=== PATIENT | male | born 1950 | race Caucasian/White ===

== ENCOUNTER 2019-06-29 03:50 | Emergency (ER) | payer OTHER ==
[2019-06-29] MEDS ORDERED: MORPHINE 4 MG/ML SYR ONE (04:26)
[2019-06-29] MEDS ORDERED: ONDANSETRON 4 MG/2 ML VIAL ONE (04:26)
[2019-06-29 04:52] LABS: Absolute Lymphocytes (CBC) 0.7 K/uL (0.7-4.9); Basophils % 0.3 % (0-1.3); Hematocrit 44.3 % (39.6-49.0); Lymphocytes % 8.3 % (15.3-44.8); MPV 9.4 fL (7.6-11.3); RBC Red Blood Cell Count 5.01 M/uL (4.33-5.43)
[2019-06-29 05:05] LABS: Albumin 3.7 g/dL (3.4-5.0); Bilirubin Direct 0.1 mg/dL (0-0.2); Bilirubin Total 0.6 mg/dL (0.2-1.0); Potassium 3.9 mmol/L (3.5-5.1); Protein, Total 6.7 g/dL (6.4-8.2)
[2019-06-29] MEDS ORDERED: HYDROCODONE/APAP 10/325 TAB ONE (05:54)
--- NOTE | 2019-06-29 07:15 | EDPHYS ---
Physician Documentation [facility] Name: Clarence Flores Age: 69 yrs Sex: Male : 1950 Arrival Date: 06/29/2019 Time: 03:53 Bed 4 Private MD: ED Physician Kenn Encarnacion HPI: 06/29 04:24 This 69 yrs old Male presents to ER via Unassigned with complaints of rn Abdominal pain. 04:24 The patient presents with abdominal pain in the left lower quadrant. Onset: The rn symptoms/episode began/occurred today. The symptoms do not radiate. Associated signs and symptoms: Pertinent positives: blood in stools, nausea, Pertinent negatives: anorexia, constipation, diarrhea, dysuria, fever. Modifying factors: The symptoms are alleviated by nothing, the symptoms are aggravated by pressure. Severity of pain: At its worst the pain was moderate in the emergency department the pain is unchanged. The patient has experienced similar episodes in the past. Reports has had about 6 episodes of diverticulitis, feels similar again, began today, no fever, no trauma, has had chronic blood in stools. No hematemesis. . Historical: - Allergies: 05:00 No Known Allergies; vc - Home Meds: 05:00 levothyroxine 125 mcg tab 1 tab once daily [Active]; lisinopril 2.5 mg Oral tab 1 tab vc once daily [Active]; Plavix 75 mg Oral tab 1 tab once daily [Active]; aspirin 325 mg oral tab [Active]; rosuvastatin 20mg Oral once daily [Active]; Fish Oil 1,000 mg oral cap [Active]; sotalol 160 mg Oral tab 1 tab 2 times per day [Active]; calmag zinc [Active]; - PMHx: 05:00 High Cholesterol; Hypertension; Hypothyroidism; Myocardial infarction; Diverticulitis; vc - PSHx: 05:00 CABG; Knee surgery; vc - Immunization history:: Adult Immunizations up to date. - Family history:: not pertinent. - Ebola Screening: : No symptoms or risks identified at this time. - Social history:: Smoking status: Patient/guardian denies using tobacco. - Hospitalizations: : No recent hospitalization is reported. ROS: 04:24 Constitutional: Negative for fever, chills, and weight loss, Eyes: Negative for injury, rn pain, redness, and discharge, Neck: Negative for injury, pain, and swelling, Cardiovascular: Negative for chest pain, palpitations, and edema, Respiratory: Negative for shortness of breath, cough, wheezing, and pleuritic chest pain, Abdomen/GI: + abd pain MS/Extremity: Negative for injury and deformity, Skin: Negative for injury, rash, and discoloration, Neuro: Negative for headache, weakness, numbness, tingling, and seizure. Exam: 04:24 Constitutional: This is a well developed, well nourished patient who is awake, alert, rn and in no acute distress. Head/Face: Normocephalic, atraumatic. ENT: MMM Cardiovascular: Regular rate and rhythm. No pulse deficits. Respiratory: No increased work of breathing, no retractions or nasal flaring. Abdomen/GI: Soft, + LLQ tenderness with guarding, no rebound MS/ Extremity: Pulses equal, no cyanosis. Neurovascular intact. Full, normal range of motion. Equal circumference. Neuro: Awake and alert, GCS 15 Vital Signs: 04:30 BP 132 / 78; Pulse 60; Resp 18; Pulse Ox 98% ; ea 05:49 BP 141 / 87; Pulse 61; Resp 18; Pulse Ox 100% ; ea 06:48 BP 136 / 76; Pulse 62; Resp 18; Pulse Ox 95% ; ea 07:32 BP 131 / 79; Pulse 60; Resp 16 S; Temp 97.9(TE); Pulse Ox 97% on R/A; Pain 3/10; jl7 08:27 BP 125 / 77; Pulse 60; Resp 16; Temp 98; Pulse Ox 97% ; bp MDM: 03:59 Patient medically screened. rn 07:13 Differential diagnosis: diverticulitis, non-specific abd pain. Data reviewed: vital rn signs, nurses notes, lab test result(s), radiologic studies, CT scan, and as a result, I will discharge patient. Counseling: I had a detailed discussion with the patient and/or guardian regarding: the historical points, exam findings, and any diagnostic results supporting the discharge/admit diagnosis, lab results, radiology results, the need for outpatient follow up, to return to the emergency department if symptoms worsen or persist or if there are any questions or concerns that arise at home. Response to treatment: the patient's symptoms have markedly improved after treatment, pain free. Special discussion: Based on the patient's Hx, exam, and Dx evaluation, there is no indication for emergent surgery or inpatient Tx. It is understood by the patient/guardian that if the Sx's persist or worsen they need to return immediately for re-evaluation. I discussed with the patient/guardian in detail that at this point there is no indication for admission to the hospital. It is understood, however, that if the symptoms persist or worsen the patient needs to return immediately for re-evaluation. 07:13 ED course: CT show acute diverticulitis, no perforation, no abscess. Will dc home with rn abx and pain meds.. 06/29 04:12 Order name: Basic Metabolic Panel; Complete Time: 05:04 rn 06/29 04:12 Order name: CBC with Diff; Complete Time: 05:04 rn 06/29 04:12 Order name: Creatinine for Radiology; Complete Time: 05:04 rn 06/29 04:12 Order name: Hepatic Function; Complete Time: 05:04 rn 06/29 04:12 Order name: Lipase; Complete Time: 05:04 rn 06/29 04:12 Order name: CT Abd/Pelvis - IV Contrast Only rn 06/29 04:12 Order name: IV Saline Lock; Complete Time: 04:27 rn 06/29 04:12 Order name: Labs collected and sent; Complete Time: 04:27 rn Administered Medications: 04:29 Drug: morphine 4 mg {Note: RASS 0.} Route: IVP; Site: right antecubital; ea 05:16 Follow up: Response: No adverse reaction vc 04:29 Drug: Zofran 4 mg Route: IVP; Site: right antecubital; ea 05:16 Follow up: Response: No adverse reaction vc 05:55 Drug: [place] 10 mg-325 mg 1 tabs Route: PO; vc 06:04 Follow up: Response: RASS: Restless (+1) vc 07:20 Drug: Cipro 400 mg Volume: 200 ml; Route: IVPB; Infused Over: 60 mins; Site: right jl7 forearm; 08:28 Follow up: IV Status: Completed infusion; IV Intake: 200ml bp 07:30 Drug: Flagyl 500 mg Volume: 100 ml; Route: IVPB; Rate: 200 ml/hr; Infused Over: 30 jl7 mins; Site: right forearm; 08:28 Follow up: IV Status: Completed infusion; IV Intake: 100ml bp Disposition: 06/29/19 07:14 Discharged to Home. Impression: Diverticulitis of large intestine without perforation or abscess without bleeding. - Condition is Stable. - Discharge Instructions: Diverticulitis. - Prescriptions for Zofran ODT 4 mg Oral tablet,disintegrating - place 1 tablet by TRANSLINGUAL route every 8 hours As needed; 20 tablet. Flagyl 500 mg Oral Tablet - take 1 tablet by ORAL route every 8 hours for 10 days; 30 tablet. Tylenol- Codeine #3 300-30 mg Oral Tablet - take 1 tablet by ORAL route every 6 hours As needed; 15 tablet. Cipro 500 mg Oral Tablet - take 1 tablet by ORAL route every 12 hours for 10 days; 20 tablet. - Medication Reconciliation Form, Thank You Letter, Antibiotic Education, Prescription Opioid Use form. - Follow up: Private Physician; When: As needed; Reason: Recheck today's complaints, Re-evaluation by your physician. - Problem is new. - Symptoms have improved. Signatures: Dispatcher [employer] EDMS Kenn Encarnacion MD MD rn Leal, Jahala RN RN jl7 Asuncion Eduardo RN RN Chacorta Gonzales, RN RN Tiffany Lomeli, RN RN vc Corrections: (The following items were deleted from the chart) 08:43 07:14 06/29/2019 07:14 Discharged to Home. Impression: Diverticulitis of large bp intestine without perforation or abscess without bleeding. Condition is Stable. Discharge Instructions: Diverticulitis. Prescriptions for Zofran ODT 4 mg Oral tablet,disintegrating - place 1 tablet by TRANSLINGUAL route every 8 hours As needed; 20 tablet, Flagyl 500 mg Oral Tablet - take 1 tablet by ORAL route every 8 hours for 10 days; 30 tablet, Tylenol-Codeine #3 300-30 mg Oral Tablet - take 1 tablet by ORAL route every 6 hours As needed; 15 tablet, Cipro 500 mg Oral Tablet - take 1 tablet by ORAL route every 12 hours for 10 days; 20 tablet. and Forms are Medication Reconciliation Form, Thank You Letter, Antibiotic Education, Prescription Opioid Use. Follow up: Private Physician; When: As needed; Reason: Recheck today's complaints, Re-evaluation by your physician. Problem is new. Symptoms have improved. rn
--- NOTE | 2019-06-29 07:15 | ER ---
Nurse's Notes [facility] Name: Clarence Flores Age: 69 yrs Sex: Male : 1950 Arrival Date: 06/29/2019 Time: 03:53 Bed 4 Private MD: Diagnosis: Diverticulitis of large intestine without perforation or abscess without bleeding Presentation: 06/29 04:51 Presenting complaint: Patient states: I started having abdominal pain yesterday morning vc and about six last night it started hurting really bad. Transition of care: patient was not received from another setting of care. Onset of symptoms was June 29, 2019. Risk Assessment: Do you want to hurt yourself or someone else? Patient reports no desire to harm self or others. Initial Sepsis Screen: Does the patient meet any 2 criteria? No. Patient's initial sepsis screen is negative. Does the patient have a suspected source of infection? No. Patient's initial sepsis screen is negative. Care prior to arrival: None. 04:51 Method Of Arrival: Ambulatory vc 04:51 Acuity: SPIKE 3 vc Historical: - Allergies: 05:00 No Known Allergies; vc - Home Meds: 05:00 levothyroxine 125 mcg tab 1 tab once daily [Active]; lisinopril 2.5 mg Oral tab 1 tab vc once daily [Active]; Plavix 75 mg Oral tab 1 tab once daily [Active]; aspirin 325 mg oral tab [Active]; rosuvastatin 20mg Oral once daily [Active]; Fish Oil 1,000 mg oral cap [Active]; sotalol 160 mg Oral tab 1 tab 2 times per day [Active]; calmag zinc [Active]; - PMHx: 05:00 High Cholesterol; Hypertension; Hypothyroidism; Myocardial infarction; Diverticulitis; vc - PSHx: 05:00 CABG; Knee surgery; vc - Immunization history:: Adult Immunizations up to date. - Family history:: not pertinent. - Ebola Screening: : No symptoms or risks identified at this time. - Social history:: Smoking status: Patient/guardian denies using tobacco. - Hospitalizations: : No recent hospitalization is reported. Screenin:38 Abuse screen: Denies threats or abuse. Nutritional screening: No deficits noted. ea Tuberculosis screening: No symptoms or risk factors identified. Fall Risk None identified. Assessment: 04:37 General: Appears uncomfortable, Behavior is appropriate for age. Pain: Complains of ea pain in abdomen. Neuro: Level of Consciousness is awake, alert, obeys commands, Oriented to person, place, time, situation. Cardiovascular: Patient's skin is warm and dry. Respiratory: Airway is patent Respiratory effort is even, unlabored, Respiratory pattern is regular, symmetrical. Derm: Skin is pink, warm \T\ dry. 04:37 GI: Bowel sounds present X 4 quads. Abd is soft Abdomen is tender to palpation X 4 vc quads. : No signs and/or symptoms were reported regarding the genitourinary system. 05:19 Reassessment: Patient and/or family updated on plan of care and expected duration. Pain ea level reassessed. Patient is alert, oriented x 3, equal unlabored respirations, skin warm/dry/pink. Pt taken to CT. 05:47 Reassessment: Reassessment: Patient states that his pain is a 5/10, MD notified. vc 07:00 Reassessment: Patient appears in no apparent distress at this time. Patient and/or jl7 family updated on plan of care and expected duration. Pain level reassessed. Patient is alert, oriented x 3, equal unlabored respirations, skin warm/dry/pink. Pt reports pain is rated 3/10 at this time. 07:20 Reassessment: Pt will be discharged after medications are done infusing. jl7 08:26 Reassessment: PT D/C HOME VIA W/C, DX WITH DIVERTICULITIS. bp Vital Signs: 04:30 BP 132 / 78; Pulse 60; Resp 18; Pulse Ox 98% ; ea 05:49 BP 141 / 87; Pulse 61; Resp 18; Pulse Ox 100% ; ea 06:48 BP 136 / 76; Pulse 62; Resp 18; Pulse Ox 95% ; ea 07:32 BP 131 / 79; Pulse 60; Resp 16 S; Temp 97.9(TE); Pulse Ox 97% on R/A; Pain 3/10; jl7 08:27 BP 125 / 77; Pulse 60; Resp 16; Temp 98; Pulse Ox 97% ; bp ED Course: 03:53 Patient arrived in ED. cl3 03:59 Kenn Encarnacion MD is Attending Physician. rn 04:37 Asuncion Eduardo RN is Primary Nurse. ea 04:38 Arm band placed on right wrist. Patient placed in an exam room, on a stretcher, on ea pulse oximetry. 04:39 Patient has correct armband on for positive identification. Placed in gown. Bed in low ea position. Call light in reach. Side rails up X 1. 04:54 Triage completed. vc 04:54 Radiology exam delayed due to lab results not completed at this time. (BUN/Creatinine). 05:34 CT completed. Patient tolerated procedure well. Patient moved to CT via stretcher. Patient moved back from CT. 05:42 CT Abd/Pelvis - IV Contrast Only In Process Unspecified. EDMS 07:00 Initial lab(s) drawn, by ED staff, sent to lab. Inserted saline lock: 20 gauge in right jl7 forearm, using aseptic technique. ,using aseptic technique. by ED staff Blood collected. 07:00 No provider procedures requiring assistance completed. jl7 08:27 IV discontinued, intact, bleeding controlled, No redness/swelling at site. Pressure bp dressing applied. Administered Medications: 04:29 Drug: morphine 4 mg {Note: RASS 0.} Route: IVP; Site: right antecubital; ea 05:16 Follow up: Response: No adverse reaction vc 04:29 Drug: Zofran 4 mg Route: IVP; Site: right antecubital; ea 05:16 Follow up: Response: No adverse reaction vc 05:55 Drug: [place] 10 mg-325 mg 1 tabs Route: PO; vc 06:04 Follow up: Response: RASS: Restless (+1) vc 07:20 Drug: Cipro 400 mg Volume: 200 ml; Route: IVPB; Infused Over: 60 mins; Site: right jl7 forearm; 08:28 Follow up: IV Status: Completed infusion; IV Intake: 200ml bp 07:30 Drug: Flagyl 500 mg Volume: 100 ml; Route: IVPB; Rate: 200 ml/hr; Infused Over: 30 jl7 mins; Site: right forearm; 08:28 Follow up: IV Status: Completed infusion; IV Intake: 100ml bp Intake: 08:28 IV: 200ml; Total: 200ml. bp 08:28 IV: 100ml; Total: 300ml. bp Outcome: 07:14 Discharge ordered by . rn 08:27 Discharged to home via wheelchair, with family. bp 08:27 Condition: stable 08:27 Discharge instructions given to patient, Instructed on discharge instructions, follow up and referral plans. medication usage, Demonstrated understanding of instructions, follow-up care, medications, Prescriptions given X 4. 08:43 Patient left the ED. bp Signatures: Dispatcher [employer] Kiran Goodwin Roman, MD MD rn Leal, Jahala, RN RN jl7 Asuncion Eduardo RN RN ea Peltier, Brian, RN RN bp Lewis, Charde cl3 Tiffany Bales RN RN vc Corrections: (The following items were deleted from the chart) 06:02 05:47 Reassessment: vc mcfarlane
[2019-06-29] MEDS ORDERED: METRONIDAZOLE 500mg IVPB 500 MG/100 ML BAG IV ONE (07:22)
[2019-06-29] MEDS ORDERED: CIPROFLOXACIN 400mg IV 400 MG/200 ML BAG IV ONE (07:22)
[2019-06-29 08:53] VITALS: O2SAT 97
[2019-06-29 08:54] VITALS: BP 125/77; TEMP 98
--- NOTE | 2019-06-29 10:41 | RAD REPORT ---
EXAM DESCRIPTION: CT - Abdomen Pelvis W Contrast - 06/29/2019 7:09 am CLINICAL HISTORY: Abdominal pain. Concern for diverticulitis. COMPARISON: None. TECHNIQUE: Axial CT imaging of the abdomen and pelvis performed with intravenous contrast. Reformatt ed coronal and sagittal images reviewed. A dose reduction technique was utilized with automated exposure control according to patient size. FINDINGS: Mild bilateral lower lobe subpleural atelectasis. The heart is normal in size. Pacemaker l say are seen in the right atrium and ventricle. Normal liver size, contour, and attenuation. A few calcified granulomas are present. Gallbladder has been resected. Normal spleen and pancreas. Normal adrenal glands and kidneys. Moderate aorta atherosclerosis. Normal caliber inferior vena cava. Mesenteric vessels are well-opacified. No adenopathy. Normal stomach and small bowel loops. Appendix is normal in the right lower quadrant. Mild diffuse di verticulosis. There is significant distal descending and sigmoid colon diverticulosis. There is a pool g segment of wall thickening at the junction of the descending and sigmoid colon with pericholecystic edema consistent with diverticulitis. Unremarkable bladder. The prostate is 5.4 x 4.4 x 5.1 cm. No pelvic adenopathy. Small amount of pelvi c free fluid is present. Mild L3-4 diffuse disc bulge. No subluxation. Mild hypertrophic endplate changes of the lumbar spine. Intact bony pelvis. Normal hips. IMPRESSION: 1. Pandiverticulosis. Acute diverticulitis at the junction of the descending and sigmoid colon. No evidence of abscess or free air. 2. Post cholecystectomy. 3. Mild L3-4 diffuse disc bulge.. 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 The interpreting radiologist is f ully responsible for the content of the report.
== END 2019-06-29 08:43 | disposition home or self-care (01) ==
LOC: ER 03:50
DX: K57.32 Diverticulitis of large intestine without perforation or abscess without bleeding (principal); I10 Essential (primary) hypertension; E78.00 Pure hypercholesterolemia, unspecified; E03.9 Hypothyroidism, unspecified; I25.2 Old myocardial infarction; Z95.1 Presence of aortocoronary bypass graft; Z79.01 Long term (current) use of anticoagulants; Z79.82 Long term (current) use of aspirin
CPT/HCPCS: 96365; 85025; 80048; 36415; 80076; 83690; 74177; 96375; 99284; Q9967; J2405; J0744

== ENCOUNTER → 2022-12-15 | Day surgery (SDC) | payer OTHER ==
--- NOTE | 2022-12-01 12:23 | RAD REPORT ---
EXAM DESCRIPTION: RAD - Chest Pa And Lat (2 Views) - 12/01/2022 12:16 pm CLINICAL HISTORY: Pre op pending urolift, hypertension COMPARISON: Chest Single View dated 07/22/2016; Chest Single View dated 07/21/2016; CHEST SINGLE VIEW d ated 03/17/2015 FINDINGS: Lines: Sternotomy. Pacemaker. Lungs: No evidence of edema or pneumonia. Pleural: No significant pleural effusions or pneumothorax. Cardiac: The heart size is within normal limits. Mediastinum: Within normal limits. Bones: No acute fractures. Other: None IMPRESSION: No acute cardiopulmonary disease.
[2022-12-01 12:37] LABS: Absolute Lymphocytes (CBC) 0.9 K/uL (0.7-4.9); Hematocrit 43.8 % (39.6-49.0); Lymphocytes % 17.3 % (15.3-44.8); MCV 91.6 fL (80-100); MPV 8.6 fL (7.6-11.3); RBC Red Blood Cell Count 4.78 M/uL (4.33-5.43)
[2022-12-01 12:45] LABS: Protime INR 1.08
[2022-12-01 12:54] LABS: Potassium 4.2 mEq/L (3.5-5.1)
--- NOTE | 2022-12-03 13:58 | EKG ---
Test Date: 2022-12-01 Test Time: 12:07:54 Cafeteria Manager: BRYAN MEASUREMENT RESULTS: Intervals: Rate: 60 MI: 214 QRSD: 84 QT: 470 QTc: 470 [place]: P: -9 MI: 214 QRS: -39 T: -9 INTERPRETIVE STATEMENTS: Electronic atrial pacemaker Left axis deviation Abnormal ECG Compared to ECG 07/22/2016 07:03:59 Left-axis deviation now present Sinus bradycardia no longer present First degree AV block no longer present Myocardial infarct finding no longer present Electronically Signed On 12-03-22 13:55:48 CDT by Audie Ceron
[~2022-12-15] MED LIST: CEFAZOLIN SODIUM 2 GM/VIAL ONE; CODEINE 30MG/APAP 300MG TAB PO PRN; FENTANYL CITR 100 MCG/2 ML ONE; LIDOCAINE 1% MPF 5 ML VIAL ONE; ONDANSETRON 4 MG/2 ML VIAL ONE; PHENAZOPYRIDINE 100MG TAB PO ONE; Ringers Lactate 1,000 ML IV ONE; dexAMETHasone 10 MG/ML VIAL ONE; propofoL 200 MG/20 ML VIAL IV ONE
[2022-12-15 09:31] VITALS: BP 134/75; TEMP 96.7; O2SAT 95
--- NOTE | 2022-12-15 14:37 | OP ---
Surgeon: CALEB JENKINS Preoperative Diagnosis: Benign prostatic hypertrophy with lower urinary tract obstruction and sympto ms. Postoperative Diagnoses: 1.Benign prostatic hypertrophy with lower urinary tract obstruction and symptoms. 2.Bulbar urethral stricture disease. Principal Procedures: 1.Prostatic urethral lift/UroLift with 5 implants placed. 2.Cystoscopy with urethral dilation over a wire. Indication For Procedure: Mr. Flores presented to the Urology Clinic with persistent obstructive urin elizabeth symptoms refractory to medical therapy. He underwent evaluation and was counseled on options for management and he elected the UroLift. Procedure In Detail: The patient was consented in the preoperative holding area before being transfe rred to the operative suite where general anesthesia was induced. He was given Ancef 2 g IV antimicr obial prophylaxis. He was placed in the lithotomy position, padded and secured to the table appropri ately. His genitalia were prepped with Hibiclens and he was draped in standard fashion. The case wa s begun using the 20-Gambian UroLift obturator and visual obturator to traverse the urethra until an a pproximately 14-Gambian bulbar urethral stricture was encountered. As a result, I switched to use a 2 2-Gambian working cystoscope to traverse the urethra and passed a LiquidCompassson guidewire via the stricture disease successfully into his bladder. I then removed the scope leaving the wire in place and over t he wire passed sequential dilators to dilate the scar tissue from 18-Gambian to 24-Gambian with relativ e ease. Once this was done, I was then able to pass the cystoscope and confirmed dilation of the str icture disease and then removed the wire. I then replaced the 20-Gambian UroLift visual obturator and sheath via his urethra and this time all t he way into his bladder. I decompressed his bladder of fluid and urine, and surveyed in its entirety . There were no papillary mucosal lesions, foreign bodies, or stones. The ureteral orifices were or thotopic in location. The urine was clear. There was a kissing lateral lobar hypertrophy as had pre viously been observed and an approximately 2-2.5 cm prostatic urethral length. As a result, I then s witched the visual obturator to a UroLift delivery device targeting the left anterolateral wall of th e prostate at about the 1 o'clock position. Initially by targeting about 1.5-2 cm distal to the blad cornell neck at the 1 o'clock position, I sweeped from anteriorly over to the lateral position and angled the delivery device about 10 degrees touching the tissue. I pulled the trigger once deploying the n eedle through the substance of the prostate. I advanced the scope with an additional 10 degrees late rally to ensure complete delivery of the needle through the substance of the prostate before pulling the trigger a second time deploying the capsular tab. I then pulled the trigger a third time tension ing the suture before backing the scope toward the midline and advancing it 2-3 mm toward the bladder neck until the white line of the monofilament was centered in the delivery bay. At this point, I pu lled the trigger fourth time deploying the urethral end piece, which did nicely invaginated in the pr ostate tissue leaving a nice rim of tissue between the prostatic urethra and the internal surface of the bladder. I returned the scope into the bladder and switched for a new UroLift delivery device an d then targeted the right lateral wall of the prostate anterolaterally at about the 11 o'clock positi on before deploying a similar implant in that location 1.5-2 cm distal to the bladder neck on the rig ht. Once this was done, it did nicely lateralized the lateral lobes of the prostate, but the anterio r tissue of the prostate did seem to fall in a bit into the urethra. As a result, I then surveyed th e channel and saw there was residual apical lateral lobar hypertrophy; so I placed an additional impl ant at the left apex on the left side at the 1 o'clock position at the level of the verumontanum befo re placing a similar implant on the right side of the verumontanum at the 11 o'clock position. This did create a nice widely patent channel with a lateral lobar hypertrophy completely lateralized, but the anterior overhang was now most prominent. As a result, I utilized a fifth and final implant stac ked above the left implant at the bladder neck and between that and the implant placed at the left ap ex more anteriorly to lift the prostatic tissue and create the continuous anterior channel desired. In the end, the cosmetic result was excellent with a continuous channel visible with the scope situat ed at the verumontanum and the bladder decompressed completely. There was minimal hematuria at this point; so with a very pleased appearance to the channel, I then refilled his bladder and placed an 18 -Gambian Sykes with ease. 15 cc of sterile water was placed in the balloon, and the patient was then taken out of the lithotomy position. The catheter was connected to a leg bag, and he was awakened fr general anesthesia before being transferred to a stretcher and then transferred to the recovery [facility] in good condition. Complications: None. Discharge Disposition: He will be standard UroLift postoperative pathway with followup in about a mo [facility]. ANDRY/LIZET Voice ID: [id number] Report ID: [id number]
== END | disposition home or self-care (01) ==
LOC: OR 05:54
PROVIDERS: ATTEND Urology
PROC: 0T7D8DZ Dilation of Urethra with Intraluminal Device, Via Natural or Artificial Opening Endoscopic (ICD-10-PCS; principal; 2022-12-15 07:30)
DX: N40.1 Benign prostatic hyperplasia with lower urinary tract symptoms (principal); N13.8 Other obstructive and reflux uropathy; N35.912 Unspecified bulbous urethral stricture, male
CPT/HCPCS: 52441; 52442 ×4; 93005; 87088; 85025; 87086; 80048; 36415; 85610; 85730; 71046; J2704; J2001; J3010; J1100; J2405; J7120